=== PATIENT | male | born 1995 | race Caucasian/White ===

== ENCOUNTER 2019-03-16 21:46 | Emergency (ER) | payer SELFPAY ==
[2019-03-16 22:07] VITALS: BP 105/63; PULSE 120; RESP 16; TEMP 38.8; O2SAT 97; BMI 28.3
== END 2019-03-16 23:40 | disposition left against medical advice (07) ==
PROVIDERS: Emergency Provider Nurse Practitioner Family; Family Provider Nurse Practitioner Family; PCP Nurse Practitioner Family
DX: Z53.21 Procedure and treatment not carried out due to patient leaving prior to being seen by health care provider (principal)
CPT/HCPCS: 99281